=== PATIENT | female | born 1980 | race Caucasian/White ===

== ENCOUNTER → 2017-03-23 | Outpatient (CLI) | payer OTHER, MEDICAID ==
[~2017-03-23] MED LIST: LAN-O-SOOTHE7 GM TOP; MOTRIN800 MG PO; PRENATAL PLUS I1 TAB PO
== END | disposition short-term general hospital (02) ==
LOC: CLENT 12:15
DX: J34.2 Deviated nasal septum (principal); J34.3 Hypertrophy of nasal turbinates